=== PATIENT | male | born 1960 | race Caucasian/White ===

== ENCOUNTER 2019-05-01 09:32 | Emergency (ER) | payer OTHER ==
--- NOTE | 2019-05-01 11:23 | ED Physician Documentation ---
PD HPI UPPER EXT INJURY - Stated complaint Stated Complaint: FINGER LAC - Chief complaint Chief Complaint: Laceration - History obtained from History obtained from: Patient - History of Present Illness Location: Left, Finger (thumb) Type of injury: Laceration (accidental with sharp edge, bleeding brisk initially. Taped it firmly right away.) Where injury occurred: Home Timing - onset: How many hours ago (1), Today Timing - details: Abrupt onset Worsened by: Palpating Associated symptoms: No: Weakness, Numbness Recently seen: Not recently seen Review of Systems Skin: reports: Laceration (s) Neurologic: denies: Focal weakness, Numbness PD PAST MEDICAL HISTORY - Past Medical History Past Medical History: No Cardiovascular: None Endocrine/Autoimmune: None - Allergies Allergies/Adverse Reactions: Allergies Allergy/AdvReac Type Severity Reaction Status Date / Time No Known Drug Allergies Allergy Verified 05/01/19 09:43 PD ED PE NORMAL - Vitals Vital signs reviewed: Yes - General General: Alert and oriented X 3, No acute distress, Well developed/nourished - Derm Derm: Normal color, Warm and dry - Extremities Extremities: Other (left thumb palmar pad with 1.5 cm laceration with crisp edges, no fleeding nor FB. It is distal to flexion crease and does not open with ROM. ) - Neuro Neuro: Alert and oriented X 3, No motor deficit, No sensory deficit Results - Vitals Vitals: Vital Signs - 24 hr 05/01/19 12:04 Temperature 36.9 C Heart Rate 78 Respiratory 20 Rate Blood Pressure 134/75 H O2 Saturation 99 Oxygen O2 Source Room air PD MEDICAL DECISION MAKING - ED course Complexity details: considered differential (wound is amenable to just tape and glue, which I applied. Loose bandage applied over that with some gauze and coban. ), d/w patient Departure - Departure Disposition: 01 Home, Self Care Clinical Impression: Laceration of left thumb Qualifiers: Encounter type: initial encounter Damage to nail status: without damage Foreign body presence: without foreign body Qualified Code(s): S61.012A - Laceration without foreign body of left thumb without damage to nail, initial encounter Condition: Stable Record reviewed to determine appropriate education?: Yes Instructions: ED Laceration Hand Comments: Keep the wound clean and dry. Allow the glue and taped to follow-up on their own after several days. Keep the protected with simple bandage. Tylenol or ibuprofen if needed for pains. Recheck if signs of infection. This otherwise should heal up okay over the next week or so. Discharge Date/Time: 05/01/19 12:04
[2019-05-01 12:05] VITALS: BP 134/75
== END 2019-05-01 12:04 | disposition home or self-care (01) ==
LOC: ED 09:32
DX: S61.012A Laceration without foreign body of left thumb without damage to nail, initial encounter (principal); W26.9XXA Contact with unspecified sharp object(s), initial encounter; Y92.009 Unspecified place in unspecified non-institutional (private) residence as the place of occurrence of the external cause
CPT/HCPCS: 99281; 99282